=== PATIENT | female | born 1975 ===

== ENCOUNTER 2017-09-02 23:18 | Emergency (ER) | payer SELFPAY ==
[2017-09-02 23:22] VITALS: BP 134/82; PULSE 117; RESP 18; TEMP 98; O2SAT 99
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
[2017-09-03] MEDS ORDERED: Tdap Vaccine 0.5 ml Vial (10-64 yrs) IM ONE ×2 (00:01→00:09)
[2017-09-03] MEDS ORDERED: Amoxicillin-Clav 875-125 mg Tab PO STA (00:03)
[2017-09-03] MEDS ORDERED: Tetanus/Diphtheria Toxoids 0.5 ml Syringe IM ONE (00:05)
[2017-09-03] MEDS ORDERED: Amoxicillin-Clav 875-125 mg Tab PO ONE (00:08)
--- NOTE | 2017-09-03 09:57 | RAD ---
PROCEDURE: Radiographs of the left tibia and fibula. HISTORY: Injury COMPARISON: None available. TECHNIQUE: Frontal and lateral views obtained. FINDINGS: BONES: Bone alignment and mineralization are normal. There is no acute displaced fracture or bone destruction. JOINT SPACES: Unremarkable. OTHER FINDINGS: None. IMPRESSION: No acute fracture or dislocation.
== END 2017-09-03 03:20 | disposition home or self-care (01) ==
LOC: H.ER 23:18
DX: S80.812A Abrasion, left lower leg, initial encounter (principal); W19.XXXA Unspecified fall, initial encounter; Y92.89 Other specified places as the place of occurrence of the external cause